=== PATIENT | male | born 1980 | race African-American/Black ===

== ENCOUNTER 2022-02-24 19:17 | Emergency (ER) | payer MEDICAID, OTHER ==
[~2022-02-24 19:17] MED LIST: [UNRECOGNIZED DRUG - REMARK]
--- NOTE | 2022-02-24 21:42 | NUR ---
CALLED FOR TRIAGE, NO ANSWER
--- NOTE | 2022-02-24 21:55 | NUR ---
LEFT BEFORE TRIAGE
== END 2022-02-24 21:56 | disposition left against medical advice (07) ==
LOC: ER 19:30
DX: Z53.21 Procedure and treatment not carried out due to patient leaving prior to being seen by health care provider (principal)

== ENCOUNTER 2022-02-25 12:55 | Emergency (ER) | payer OTHER ==
[~2022-02-25] VITALS: Ht 180.3 cm; Wt 73.5 kg
--- NOTE | 2022-02-25 13:18 | NUR ---
right hand pain - slammed by a car door last thursday
--- NOTE | 2022-02-25 14:48 | NUR ---
Patient discharged to home in stable condition. Written and verbal after care instructions given. Patient verbalizes understanding of instruction.
[2022-02-25 14:49] VITALS: BP 135/78
== END 2022-02-25 14:49 | disposition home or self-care (01) ==
LOC: ER 13:05
DX: S60.221A Contusion of right hand, initial encounter (principal); F41.9 Anxiety disorder, unspecified; F17.200 Nicotine dependence, unspecified, uncomplicated; W22.8XXA Striking against or struck by other objects, initial encounter; Y93.89 Activity, other specified; Y92.89 Other specified places as the place of occurrence of the external cause; Y99.8 Other external cause status
CPT/HCPCS: 73130-TC